=== PATIENT | male | born 1980 | race Caucasian/White ===

== ENCOUNTER 2023-08-26 07:50 | Outpatient (OUT) | payer OTHER, SELFPAY ==
[2023-08-26 08:47] LABS: Basophils Percent Auto 0.4 % (0.2-2.0); Eosinophils Absolute Auto 0.4 10^3/uL (0.0-0.7); Eosinophils Percent Auto 4.7 % (0.9-7.0); Hematocrit 43.9 % (42.0-54.0); Hemoglobin 14.9 g/dL (14.0-18.0); Immature Granulocytes Abs Auto 0.01 10^3/uL (0.00-0.03); Immature Granulocytes Pct Auto 0.1 % (0.0-0.5); Lymphocytes Absolute Auto 3.1 10^3/uL (1.2-3.8); Mean Corpuscular HGB Conc 33.9 g/dL (29.9-35.2); Mean Corpuscular Hemoglobin 32.5 pg (25.9-34.0); Mean Corpuscular Volume 95.6 fL (80.0-94.0); Mean Platelet Volume 9.7 fL (9.5-13.5); Monocytes Absolute Auto 0.5 10^3/uL (0.3-0.8); Monocytes Percent Auto 6.8 % (1.7-12.0); Neutrophils Absolute Auto 3.7 10^3/uL (1.4-6.5); Platelet Count 237 10^3/uL (150-450); Red Blood Count 4.59 10^6/uL (4.70-6.10); Red Cell Distribution Width 12.2 % (11.0-15.0); White Blood Count 7.7 10^3/uL (4.0-11.0)
[2023-08-26 09:11] LABS: Alanine Aminotransferase 29 U/L (16-63); Albumin Globulin Ratio 1.1; Albumin Level 3.7 g/dL (3.4-5.0); Alkaline Phosphatase 65 U/L (46-116); Aspartate Amino Transferase 14 U/L (15-37); BUN Creatinine Ratio 13.2; Bilirubin Total 0.5 mg/dL (0.2-1.0); Calcium 8.5 mg/dL (8.5-10.1); Carbon Dioxide 32.1 mmol/L (21.0-32.0); Chloride 106 mmol/L (98-107); Cholesterol 196 mg/dL (<=200); Estimated GFR (African America >60 (>=60); Estimated GFR (Non-African Ame >60 (>=60); Globulin 3.3 g/dL; Glucose 94 mg/dL (74-106); HDL Cholesterol 42 mg/dL (40-60); Potassium 4.1 mmol/L (3.5-5.1); Sodium 145 mmol/L (136-145); Triglycerides 179 mg/dL (<=150); VLDL CHOLESTEROL 35.8 mg/dL
[2023-08-26 09:12] LABS: Chol HDL Ratio 4.7
== END 2023-08-26 07:51 | disposition home or self-care (01) ==
LOC: LAB 07:54
PROVIDERS: PCP Internal Medicine; Visit Provider Internal Medicine
DX: Z00.00 Encounter for general adult medical examination without abnormal findings (principal)
CPT/HCPCS: 36415; 80053; 80061; 85025

== ENCOUNTER 2024-09-24 10:59 | Outpatient (OUT) | payer OTHER, SELFPAY ==
--- OUTSIDE RECORDS SUMMARY | 2024-09-24 11:16 | XMS_ITS | CCD ---
Author Organization [facility] CliniSyde Care Team Providers Care Contract Administration Coordinator Name Role Phone MISC, DOCTOR Admitting Unavailable MISC, DR GARCIA Consulting Unavailable MISC, DR GARCIA Attending Unavailable BALL, DR BRYAN Primary Care Unavailable BALL, DR BRYAN Primary Care Unavailable PATRICE COLBERT Admitting Unavailable PATRICE COLBERT Consulting Unavailable PATRICE COLBERT Attending Unavailable GAIL AMAYA Admitting Unavailable GAIL AMAYA Attending Unavailable CHRISS ROUSE Primary Care Unavailable ORAL STERLING Referring Unavailable CHRISS ROUSE Primary Care Unavailable ORAL STERLING Referring Unavailable CHRISS ROUSE Primary Care Unavailable Chriss Rouse DO Consulting Unavail able DeVaul EXTRAS CASTING DIRECTOR-CENTER RECEPTIONIST, Elma Walker Attending Unav ailable Ball DOChriss Primary Care Unavail able DeVaul EXTRAS CASTING DIRECTOR-CENTER RECEPTIONIST, Elma Walker Attending Unav ailable Ball , Chriss Puckett Primary Care Unavail able Chriss Rouse Unavailable Chriss Rouse DO Primary Care Provider Allergies Allergy Classification Reported Allergen(s) Allergy Type Date of Onset Reaction(s) Facility (2 sources) Aspirin; Translations: [aspirin] Drug Allergy 988 [facility] Repository (1 source) Novocain Drug allergy (disorder) [facility]ository (3 sources) NOVACAINE Propensity to adverse reactions Unknown [facility] Other (3 sources) ASA-APAP Buffered *ANALGESICS - NonNarcotic* Propensity to adverse reactions Comment:asprin contraindicated [place] Other (3 sources) aspirin contraindicated Propensity to adverse reactions Comment:adverse rxn/side effects Kuailexue Other (2 sources) Aluminum aspirin Drug Allergy Anaphylaxis [place] (2 sources) Procaine Drug Allergy 022 [facility] Work Phone: Medications Current Medications Medication Drug Class(es) Dates Sig (Normalized) Sig (Original) bacillus subtilis [id number] unt / inulin 1000 mg chewable tablet (2 sources) Probiotic - as directed Orally Active famotidine 40 mg oral tablet (3 sources) Histamine-2 Receptor Antagonist Start: 09-28-2021 take 1 tablet by mouth every twenty-four hours Pepcid 40 MG 1 tablet at bedtime as needed Orally Once a day for 30 days Sep, Active Lactobacillus acidophilus (2 sources) take 1 tablet by mouth once daily Lactobacillus (PROBIOTIC ACIDOPHILUS PO) Take 1 tablet by mouth daily 0 Active levoFLOXacin 500 mg oral tablet (1 source) Quinolone Antimicrobial Start: 12-13-2022 End: 12-23-2022 take 1 tablet by mouth once daily levoFLOXacin (LEVAQUIN) 500 MG tablet Take 1 tablet by mouth daily for 10 days 10 tablet 0 12/13/2022 12/23/2022 Active Multiple Vitamins-Minerals (THERAPEUTIC MULTIVITAMIN-MINERA LS) tablet (2 sources) take 1 tablet by mouth once daily Multiple Vitamins-Minerals (THERAPEUTIC MULTIVITAMIN-LAUNCHING PAD MECHANIC ALS) tablet Take 1 tablet by mouth daily 0 Active Multivitamin preparation (3 sources) take 1 tablet by mouth once daily Multivitamin - 1 tablet Orally Once a day Active pantoprazole 40 mg delayed release oral tablet (2 sources) Proton Pump Inhibitor Start: 06-20-2022 take 1 tablet by mouth once daily pantoprazole (PROTONIX) 40 MG tablet Take 40 mg by mouth daily 0 06/20/2022 Active Probiotic - (1 source) Probiotic - as directed Orally Active Completed/Discontinued Medications Medication Drug Class(es) Dates Sig (Normalized) Sig (Original) Budesonide / formoterol (3 sources) Corticosteroid, beta2-Adrenergic Agonist Start: 08-05-2019 take 2 puff(s) by inhalation every twelve hours as needed Symbicort 80-4.5MCG/ACT Symbicort 80-4.5MCG/ACT, 2 (two) Puff Puff every 12 hours # 1, 08/05/2019, Ref. x2. Active Inhalation every 12 hours for 30 Jul, Not-Taking/PRN Start: 08-05-2019 take 2 puff(s) by in halation every twelve hours Symbicort 80-4.5MCG/ACT Symbicort 80-4.5MCG/ACT, 2 (two) Puff Puff every 12 hours # 1, 08/05/2019, Ref. x2. Active Inhalation every 12 hours for 30 Jul, Not-Taking sertraline 100 mg oral tablet (3 sources) Serotonin Reuptake Inhibitor Start: 07-05-2021 take 1 tablet by mouth once as needed Sertraline HCl 100MG Sertraline HCl 100MG, 1 (one) Tablet q HS # 0, 07/05/2021, No Refill. Active Oral q HS for 0 Jun, Not-Taking/PRN Sucralfate (3 sources) Aluminum Complex Start: 09-28-2021 Carafate 1GM Carafate 1GM, 1 (one) Tablet AC and HS # 120, 09/28/2021, Ref. x2. Active Oral AC and HS for 30 Sep, Not-Taking/PRN Start: 09-28-2021 take 1 tablet by ana luisa th at bedtime Carafate 1GM Carafate 1GM, 1 (one) Tablet AC and HS # 120, 09/28/2021, Ref. x2. 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; Translations: [Gastro-esophageal reflux disease with esophagitis] Onset: 01-11-2022 Chronic Inflammatory conditions of male genital organs (2 sources) Orchitis; Translations: [Orchitis] Onset: 12-13-2022 Episodic Other gastrointestinal disorders (3 sources) Irritable bowel syndrome with diarrhea; Translations: [Irritable bowel syndrome with diarrhea] Chronic Substance-related disorders (5 sources) Tobacco user; Translations: [Nicotine dependence, cigarettes, uncomplicated] Chronic Syncope (3 sources) Syncope and collapse; Translations: [Syncope and collapse] Episodic Viral infection (1 source) Other viral warts Episodic Past or Other Problems Problem Classification Problem Date Documented Date Episodic/Chronic Contraceptive and procreative management (1 source) Encounter for sterilization; Translations: [Encounter for sterilization] Onset: 08-30-2022 Episodic Esophageal disorders (1 source) Esophageal disorders Immunizations and screening for infectious disease (4 sources) Encounter for immunization; Translations: [ENCOUNTER FOR IMMUNIZATION] Onset: 01-29-2021 Episodic Other nervous system disorders (1 source) Other acute postprocedural pain; Translations: [Other acute postprocedural pain] Onset: 08-30-2022 Episodic Results Test Name Value Interpretation Reference Range Facil ity C.trachomatis N.gonorrhoeae DNAon 12-13-2022 C. trachomatis DNA JUDITH+probe Nom (Unsp spec) Negative Negative [facility] Collection Method-Specimen Urine [facility] NEISSERIA GONORRHOEAE BY AMP Negative Negative [facility] Chlamydia/Gonorrhea Nucleic Acid Probeon 12-13-2022 CTENDO Negative Normal Negative [facility] Comment on above: Performed By: #### C HLGC #### [place] [id number] Ph. [phone] GC/CHL Collection Method Urine Normal [facility] Comment on above: Performed By: #### C HLGC #### [address] [address] Ph. [phone] GNP Negative Normal Negative [facility] Comment on above: Performed By: #### C HLGC #### [address] [address] Ph. [phone] Culture, Urineon 12-13-2022 Culture, Urine USOURCE: Clean Catch Midstream Preliminary Result: No Growth 24 Hours CULTURE: No Growth at 48 Hours [facility] Comment on above: Order Comment: Speci fy (ex-cath, midstream, cysto, etc)?->midstream Performed By: #### C UR #### [address] [address] Ph. [phone] Post Vasectomy Checkon 10-25 SPERM NO SPERMATOZOA SEEN ON CONCENTRATED SPECIMEN. Normal [facility] Comment on above: Performed By: #### P VAS #### [place] [id number] [place] [id number] Ph. [phone] Post Vasectomy Sperm Counton 10-25-2022 [place] Post Vasectomy NO SPERMATOZOA SEEN ON CONCENTRATED SPECIMEN. [facility] VASILIY [place]FARO [id number] Assoc. Page 1 of 1 [address] [place] [address] PROC: 08/30/2022 [facility] RECV: 08/31/2022 [address] [facility] RPTD: 09/02/2022 [place] [address] LOC: KATHRYN ACCT: [id number] SEX: M : 1980 AGE: 42 Y PATHOLOGY REPORT ATTN: NON-STAFF PHYSICIAN REQ: GAIL AMAYA Copies To: CHRISS ROUSE Clinical Information: STERILIZATION FINAL DIAGNOSIS: A, B. Left and right vas deferens, vasectomy: Complete cross-sections of unremarkable vas deferens. Specimen: A) VAS DEFERENS, LEFT B) VAS DEFERENS, RIGHT Gross Examination: The specimen consists of two parts, each received in formalin and labeled with the patient's name, Vasiliy Alfaro. A - The container is labeled left vas deferens. The specimen consists of a scant fragment of tissue measuring 0.2 cm in maximum dimension. 1 ns. B - The container is labeled right vas. The specimen consists of a scant fragment of tissue measuring 0.4 cm in maximum dimension. 1 ns. SMW:v_alppl_p Microscopic Examination: A, B. Microscopic examination performed. [id number] x 2 PARTH AJ M.D., F.C.A.P [facility]/ [facility] Printed on: 09/02/2022 [address] [place], [place] [address] Original print date: 09/02/2022 Normal [facility] Surgical Pathology Requeston 08-30-2022 MIRANDA SEE BELOW [facility] Comment on above: Order Comment: Nimesh mcgovern [Z30.2] Pre-op diagnosis: left vas deference Result Comment: [place] [facility] VASILIY ALFARO [id number]\X0D0A\Assoc. Page 1 of 1\X0D0A\[address]\X0D0A\[place] [address]\X0D0A\ PROC: 08/30/2022\X0D0A\[facility] RECV: 08/31/2022\X0D0A\[address] RPTD: 09/02/2022\X0D0A\[place] [address]\X0D0A\ LOC: WYA\X0D0A\ ACCT: [id number] SEX: M\X0D0A\ : 1980 AGE: 42 Y\X0D0A\X0D0A\ PATHOLOGY REPORT\X0D0A\ ATTN: NON-STAFF PHYSICIAN\X0D0A\ REQ: GAIL AMAYA\X0D0A\X0D0A\X0D0A\Copies To: CHRISS ROUSE\X0D0A\X0D0A\X0D0A\Clinical Information: STERILIZATION\X0D0A\X0D0A\FINAL DIAGNOSIS:\X0D0A\A, B. Left and right vas deferens, vasectomy:\X0D0A\ Complete cross-sections of unremarkable vas deferens.\X0D0A\X0D0A\Specimen:\X0D0A\A) VAS DEFERENS, LEFT\X0D0A\B) VAS DEFERENS, RIGHT\X0D0A\X0D0A\X0D0A\Gross Examination:\X0D0A\The specimen consists of two parts, each received in formalin and\X0D0A\labeled with the patient's name, Vasiliy Alfaro.\X0D0A\X0D0A\A - The container is labeled left vas deferens. The specimen consists\X0D0A\of a scant fragment of tissue measuring 0.2 cm in maximum dimension. 1\X0D0A\ns.\X0D0A\X0D0A\B - The container is labeled right vas. The specimen consists of a\X0D0A\scant fragment of tissue measuring 0.4 cm in maximum dimension. 1 ns.\X0D0A\SMW:v_alppl_p\X0D0A\X0D0A\Microscopic Examination:\X0D0A\A, B. Microscopic examination performed.\X0D0A\X0D0A\[address] x 2\X0D0A\X0D0A\X0D0A\ \X0D0A\ PARTH AJ M.D., Prosper.P\X0D0A\X0D0A\X0D0A\[place]/ [facility] Printed on: 09/02/2022\X0D0A\[address]\X0D0A\[place], [place] [address]\X0D0A\Original print date: 09/02/2022 Performed By: #### 1 [id number] #### [facility] See Report CBC AUTO DIFFon 01-11-2022 BASO # 0.0 103/ul Normal 0.0-0.1 [facility] Comment on above: Performed By: #### C BC #### [facility] [address] [place] [address] [address] Carlos A Teran Basophils/100 WBC (Bld) 0.6 % Normal 0.2-2.0 [facility] Comment on above: Performed By: #### C BC #### [facility] [address] [place] [address] [address] Carlos A Teran EO # 0.3 103/ul Normal 0.0-0.7 [facility] Comment on above: Performed By: #### C BC #### [facility] [address] [place] [address] [address] Carlos A Teran Eosinophils/100 WBC (Bld) 5.3 % Normal 0.9-7.0 [facility] Comment on above: Performed By: #### C BC #### [facility] [address] [place] [address] [address] Carlos A Teran Erythrocyte distribution width (RBC) [Ratio] 12.1 % Normal 11.0-15.0 [facility] Comment on above: Performed By: #### C BC #### [facility] [address] [place] [address] [address] Carlos A Teran Hematocrit (Bld) [Volume fraction] 44.5 % Normal 42.0-54.0 [facility] Comment on above: Performed By: #### C BC #### [facility] [address] [place] [address] [address] Carlos A Teran Hemoglobin (Bld) [Mass/Vol] 15.5 g/dL Normal 14.0-18.0 [facility] Comment on above: Performed By: #### C BC #### [facility] [address] [place] [address] [address] Carlos A Teran IG # 0.01 10e3/ul Normal 0.00-0.03 [facility] Comment on above: Performed By: #### C BC #### [facility] [address] [place] [address] [address] Carlos A Teran IG % 0.2 % Normal 0.0-0.5 [facility] Comment on above: Performed By: #### C BC #### [facility] [address] [place] [address] [address] Carlos A Teran LYMPH # 2.2 103/ul Normal 1.2-3.8 [facility] Comment on above: Performed By: #### C BC #### [facility] [address] [place] [address] [address] Carlos A Teran Lymphocytes/100 WBC (Bld) 43.7 % Normal 20.5-60.0 [facility] Comment on above: Performed By: #### C BC #### [facility] [address] [place] [address] [address] Carlos A Teran MANUAL DIFF REQ NO Normal [facility] Comment on above: Performed By: #### C BC #### [facility] [address] [place] [address] Dr. Carlos A Teran MCH (RBC) [Entitic mass] 32.6 pg Normal 25.9-34.0 [facility] Comment on above: Performed By: #### C BC #### [facility] [address] [place] [address] [address] Carlos A Teran MCHC (RBC) [Mass/Vol] 34.8 g/dL Normal 29.9-35.2 [facility] Comment on above: Performed By: #### C BC #### [facility] [address] [place] [address] [address] Carlos A Teran MCV (RBC) [Entitic vol] 93.7 fL Normal 80.0-94.0 [facility] Comment on above: Performed By: #### C BC #### [facility] [address] [place] [address] [address] Carlos A Teran MONO # 0.3 103/ul Normal 0.3-0.8 [facility] Comment on above: Performed By: #### C BC #### [facility] [address] [place] [address] Dr. Carlos A Teran Monocytes/100 WBC (Bld) 5.8 % Normal 1.7-12.0 [facility] Comment on above: Performed By: #### C BC #### [facility] [address] [place] [address] Dr. Carlos A Teran NEUT # 2.3 103/ul Normal 1.4-6.5 [facility] Comment on above: Performed By: #### C BC #### [facility] [address] [place] [address] Dr. Carlos A Teran Neutrophils/100 WBC (Bld) 44.4 % Normal 43.0-75.0 [facility] Comment on above: Performed By: #### C BC #### [facility] [address] [place] [address] Dr. Carlos A Teran Platelet mean volume (Bld) [Entitic vol] 9.4 fL Critically low 9.5-13.5 [facility] Comment on above: Performed By: #### C BC #### [facility] [address] [place] [address] Dr. Carlos A Teran PLT 216 103/ul Normal 150-450 [facility] Comment on above: Performed By: #### C BC #### [facility] [address] [place] [address] Dr. Carlos A Teran RBC 4.75 106/ul Normal 4.70-6.10 [facility] Comment on above: Performed By: #### C BC #### [facility] [address] [place] [address] Dr. Carlos A Teran WBC 5.1 103/ul Normal 4.0-11.0 [facility] Comment on above: Performed By: #### C BC #### [facility] [address] [place] [address] Dr. Carlos A Teran PROF 14(COMP METB)on 022 Albumin [Mass/Vol] 3.9 g/dL Normal 3.4-5.0 [facility] Comment on above: Performed By: #### C MP #### [facility] [address] [place] [address] Dr. Carlos A Teran Albumin/Globulin [Mass ratio] 1.2 {ratio} Normal [facility] Comment on above: Performed By: #### C MP #### [facility] [address] [place] [address] Dr. Carlos A Teran ALP [Catalytic activity/Vol] 67 U/L Normal 46-116 [facility] Comment on above: Performed By: #### C MP #### [facility] [address] [place] [address] Dr. Carlos A Teran ALT [Catalytic activity/Vol] 31 U/L Normal 16-63 [facility] Comment on above: Performed By: #### C MP #### [facility] [address] [place] [address] Dr. Carlos A Teran Anion gap [Moles/Vol] 8.7 mmol/L Normal [facility] Comment on above: Performed By: #### C MP #### [facility] [address] [place] [address] Dr. Carlos A Teran AST [Catalytic activity/Vol] 12 U/L Critically low 15-37 [facility] Comment on above: Performed By: #### C MP #### [facility] [address] [place] [address] Dr. Carlos A Teran Bilirubin [Mass/Vol] 0.5 mg/dL Normal 0.2-1.0 [facility] Comment on above: Performed By: #### C MP #### [facility] [address] [place] [address] Dr. Carlos A Teran Calcium [Mass/Vol] 8.4 mg/dL Critically low 8.5-10.1 [facility] Comment on above: Performed By: #### C MP #### [facility] [address] [place] [address] [address] Carlos A Teran Chloride [Moles/Vol] 102 mmol/L Normal 98-107 [facility] Comment on above: Performed By: #### C MP #### [facility] [address] [place] [address] Dr. Carlos A Teran CO2 [Moles/Vol] 29.2 mmol/L Normal 21.0-32.0 [facility] Comment on above: Performed By: #### C MP #### [facility] [address] [place] [address] Dr. Carlos A Teran Creatinine [Mass/Vol] 1.04 mg/dL Normal 0.70-1.30 [facility] Comment on above: Performed By: #### C MP #### [facility] [address] [place] [address] Dr. Carlos A Teran EGFR-AF MALAGASY >60 Normal >=60 [facility] Comment on above: Performed By: #### C MP #### [facility] [address] [place] [address] Dr. Carlos A Teran EGFR-NON AF MALAGASY >60 Normal >=60 [facility] Comment on above: Performed By: #### C MP #### [facility] [address] [place] [address] Dr. Carlos A Teran Globulin (S) [Mass/Vol] 3.2 g/dL Normal [facility] Comment on above: Performed By: #### C MP #### [facility] [address] [place] [address] Dr. Carlos A Teran Glucose [Mass/Vol] 102 mg/dL Normal 74-106 [facility] Comment on above: Performed By: #### C MP #### [facility] [address] [place] [address] [address] Carlos A Teran Potassium [Moles/Vol] 3.9 mmol/L Normal 3.5-5.1 [facility] Comment on above: Performed By: #### C MP #### [facility] [address] [place] [address] [address] Carlos A Teran Protein [Mass/Vol] 7.1 g/dL Normal 6.1-8.2 [facility] Comment on above: Performed By: #### C MP #### [facility] [address] [place] [address] [address] Carlos A Teran Sodium [Moles/Vol] 136 mmol/L Normal 136-145 [facility] Comment on above: Performed By: #### C MP #### [facility] [address] [place] [address] [address] Carlos A Teran Urea nitrogen [Mass/Vol] 8.0 mg/dL Normal 7.0-18.0 [facility] Comment on above: Performed By: #### C MP #### [facility] [address] [place] [address] [address] Carlos A Teran Urea nitrogen/Creatinine [Mass ratio] 7.7 mg/mg Normal [facility] Comment on above: Performed By: #### C MP #### [facility] [address] [place] [address] [address] Carlos A Teran VIT B12 AND FOLATEon 022 Cobalamin (Vitamin B12) [Mass/Vol] 337.0 pg/mL Normal 239.0-931.0 [facility] Comment on above: Performed By: #### B 12FOL #### [facility] [address] [place] [address] [address] Carlos A Teran FOLATE 10.20 ng/mL Normal 8.60-58.90 [facility] Comment on above: Performed By: #### B 12FOL #### [facility] [address] [place] [address] [address] Carlos A Teran Ambulatory Clinical Summaryo n 02-18-2020 Ambulatory Clinical Summary {[id number]}CD:[id number] Normal [facility] Pathology Noteon 02-14-2020 Pathology Note [id number] #1.00CD:127 Normal [facility] Lab Reportson 02-01-2020 Lab Reports [id number] #1.00CD:127 Normal [facility] BASIC METABOLIC PANELon 09-0 Anion gap [Moles/Vol] 16 mmol/L Normal 10 - 20 [facility] Comment on above: Performed By: #### B MP #### [address] [address] Calcium [Mass/Vol] 9.6 mg/dL Normal 8.6 - 10.3 [facility] Comment on above: Performed By: #### B MP #### [address] [address] Chloride [Moles/Vol] 103 mmol/L Normal 98 - 107 [facility] Comment on above: Performed By: #### B MP #### [address] [address] Creatinine [Mass/Vol] 1.03 mg/dL Normal 0.50 - 1.30 [facility] Comment on above: Performed By: #### B MP #### [address] [address] GFR- AM. >60 Normal >60 [facility] Comment on above: Result Comment: CALC ULATIONS OF ESTIMATED GFR ARE PERFORMED USING THE MDRD STUDY EQUATION FOR THE IDMS-TRACEABLE CREATININE METHODS. CLIN CHEM 2007;53:766-72 Performed By: #### B MP #### [address] [address] GFR-NON AM. >60 Normal >60 [facility] Comment on above: Performed By: #### B MP #### [address] [address] Glucose [Mass/Vol] 99 mg/dL Normal 74 - 99 [facility] Comment on above: Performed By: #### B MP #### [facility] [address] [place] [address] HCO3 (Bld) [Moles/Vol] 24 mmol/L Normal 21 - 32 [facility] Comment on above: Performed By: #### B MP #### [address] [address] Potassium [Moles/Vol] 3.3 mmol/L Low 3.5 - 5.3 [facility] Comment on above: Performed By: #### B MP #### [address] [address] Sodium [Moles/Vol] 140 mmol/L Normal 136 - 145 [facility] Comment on above: Performed By: #### B MP #### [address] [address] Urea nitrogen [Mass/Vol] 11 mg/dL Normal 6 - 23 [facility] Comment on above: Performed By: #### B MP #### [address] [address] CBCon 05-16-2019 Erythrocyte distribution width (RBC) [Ratio] 11.9 % Normal 11.5 - 14.5 [facility] Comment on above: Performed By: #### C BC #### [address] [address] Hematocrit (Bld) [Volume fraction] 43.2 % Normal 41.0 - 52.0 [facility] Comment on above: Performed By: #### C BC #### [address] [address] Hemoglobin (Bld) [Mass/Vol] 15.0 g/dL Normal 13.5 - 17.5 [facility] Comment on above: Performed By: #### C BC #### [address] [address] MCHC (RBC) [Mass/Vol] 34.7 g/dL Normal 32.0 - 36.0 [facility] Comment on above: Performed By: #### C BC #### [facility] [address] [place] [address] MCV (RBC) [Entitic vol] 91 fL Normal 80 - 100 [facility] Comment on above: Performed By: #### C BC #### [facility] [address] [place] [address] Platelets (Bld) [#/Vol] 269 10*3/uL Normal 150 - 450 [facility] Comment on above: Performed By: #### C BC #### [address] [address] RBC (Bld) [#/Vol] 4.77 x10E12/L Normal 4.50 - 5.90 [facility] Comment on above: Performed By: #### C BC #### [address] [address] WBC (Bld) [#/Vol] 7.7 10*3/uL Normal 4.4 - 11.3 [facility] Comment on above: Performed By: #### C BC #### [address] [address] TROPONIN Ion 05-16-2019 Troponin I.cardiac [Mass/Vol] ng/mL Normal 0.00 - 0.03 [facility] Comment on above: Result Comment: LESS THAN 0.04 NG/ML: NEGATIVE REPEAT TESTING IN THREE TO SIX HOURS IF CLINICALLY INDICATED. 0.04 - 0.5 NG/ML: CONSISTENT WITH POSSIBLE CARDIAC DAMAGE AND POSSIBLE INCREASED CLINICAL RISK. SERIAL MEASUREMENTS MAY HELP ASSESS EXTENT OF MYOCARDIAL DAMAGE. >0.5 NG/ML: CONSISTENT WITH CARDIAC DAMAGE, INCREASED CLINICAL RISK AND MYOCARDIAL INFARCTION. SERIAL MEASUREMENTS MAY HELP ASSESS EXTENT OF MYOCARDIAL DAMAGE. . Note: Troponin I testing is performed using different testing methodology at [facility] than at other [facility]. Direct result comparisons should only be made within the same method. Performed By: #### T ROP2 #### [address] [address] Vital Signs Date Time Vital Sign Value Performing Clinician Facility 09-24-2023 15:30-0500 Body height 170.18 cm Chriss Rouse Other [facility] Other 09-24-2023 15:30-0500 Body mass index (BMI) [Ratio] 26.81 kg/m2 Chriss Ball Other [facility] Other 09-24-2023 15:30-0500 Body weight 77.66 kg Chriss Ball Other [facility] Other 09-24-2023 15:30-0500 Diastolic blood pressure 78 mm[Hg] Chriss Ball Other [facility] Other 09-24-2023 15:30-0500 Respiratory rate 12 /min Chriss Ball Other [facility] Other 09-24-2023 15:30-0500 Systolic blood pressure 121 mm[Hg] Chriss Ball Other [facility] Other 08-21-2023 08:30-0500 Body height 170.18 cm Chriss Ball Other [facility] Other 08-21-2023 08:30-0500 Body mass index (BMI) [Ratio] 26.9 kg/m2 Chriss Ball Other [facility] Other 08-21-2023 08:30-0500 Body weight 77.93 kg Chriss Ball Other [facility] Other 08-21-2023 08:30-0500 Diastolic blood pressure 74 mm[Hg] Chriss Ball Other [facility] Other 08-21-2023 08:30-0500 Respiratory rate 12 /min Chriss Ball Other [facility] Other 08-21-2023 08:30-0500 Systolic blood pressure 110 mm[Hg] Chriss Ball Other [facility] Other Encounters Encounter Date Encounter Type Care Provider Facility Start: 09-24-2023 End: 09-24-2023 ambulatory Chriss Rouse Other [facility] Other Start: 09-24-2023 Office outpatient vi sit 15 minutes Chriss Rouse [facility] Start: 08-26-2023 End: 08-26-2023 ambulatory Chriss Rouse Other [facility] Other Start: 08-26-2023 Telephone encounter Chriss Rouse [facility] Start: 08-21-2023 End: 08-21-2023 ambulatory Chriss Rouse Other [facility] Other Start: 08-21-2023 Encounter for genera l adult medical examination without abnormal findings Chriss Rouse [facility] Start: 08-21-2023 Periodic preventive med est patient 40-64yrs Chriss Rouse [facility] Start: 06-26-2023 End: 06-27-2023 ambulatory Elma Buchanan EXTRAS CASTING DIRECTOR-CENTER RECEPTIONIST [facility] Start: 06-24-2023 ambulatory Chriss Rouse DO Facility:[facility] Start: 12-13-2022 ambulatory [facility] Start: 12-13-2022 End: 12-13-2022 Subsequent hospital visit by physician Chriss Rouse DO Work Phone: [facility] Comment on above: Orchitis of left ricky ticle Start: 10-25-2022 ambulatory [facility] Start: 10-25-2022 End: 10-25-2022 Subsequent hospital visit by physician Chriss Rouse DO Work Phone: [facility] Comment on above: S/P vasectomy Start: 08-30-2022 End: 08-30-[address] [facility] Start: 01-11-2022 End: 01-12-[address] DOCTOR MICHAUD Facility:[facility] Start: 01-29-2021 End: 01-30-[address] CHRISS ROUSE Facility:[facility] Procedures Date Procedure Procedure Detail Performing Clinician Start: 12-13-2022 Iadna multiple organ isms amplified probe tq Oral Sterling PA-C Work Phone: Start: 10-25-2022 POST VASECTOMY SPERM COUNT Oral Sterling PA-C Work Phone: H/O: vasectomy S/P vasectomy Chriss Yeison l DO Work Phone: Plan of Treatment Date Care Activity Detail Author Start: 03-14-2029 DTaP/Tdap/Td vaccine (2 - Td or Tdap) DTaP/Tdap/Td vaccine (2 - Td or Tdap) [facility] Start: 02-03-2023 End: 02-03-2023 Patient encounter procedure 02/03/2023 Office Visit Urology Oral Sterling PA-C [address] [place] [address] [place] [address] [facility] Start: 04-15-2022 Influenza vaccination Flu vaccine (# 1) [facility] Start: 03-26-2021 COVID-19 Vaccine (3 - Booster for Pfizer series) COVID-19 Vaccine (3 - Booster for Pfizer series) [facility] Start[facility] 2019 Lipid panel Lipids [facility] Start: 1997 Hepatitis C screening Hepatitis C sc reen [facility] Start: 1994 HIV screening HIV screen [facility] Start: 1991 Depression Screen Depression Screen [facility] Start: 1985 Pneumococcal 0-64 ye ars Vaccine (1 - PCV) Pneumococcal 0-64 years Vaccine (1 - PCV) [facility] End: 12-13-2022 C.trachomatis N.gonorrhoeae DNA, Urine C.trachomatis N.gonorrhoeae DNA, Urine Microbiology Routine Orchitis of left testicle 1 Occurrences starting 12/13/2022 until 12/13/2022 [facility] Work Phone: Comment on above: 1 Occurrences starti ng 12/13/2022 until 12/13/2022 End: 12-13-2022 Culture, Urine [facility] Work Phone: Comment on above: 1 Occurrences starti ng 12/13/2022 until 12/13/2022 Payers Date Payer Category Payer Unknown 2019 Unknown [id number] 1979 Unknown [id number] [id number] 1979 Unknown [id number] [id number] [id number] 1979 Unknown [id number] [id number] 1979 Unknown [id number] 2.16.8 [id number] 1979 Unknown [id number] 2.16.8 [id number] 1979 Unknown [id number] [id number] 1979 Unknown [id number] [id number]. [id number] 1959 Unknown [id number] Social History Date Type Detail Facility Sex Assigned At [facility] Other Start: 09-15-1994 [facility] Phone: Start: 09-15-1994 History of tobacco use Cigarette Smo ker [facility] [employer] Phone: Start: 06-07-2022 End: 09-13-2022 Cigarettes smoked current (pack per day) - Reported 1 [facility] [employer] Phone: Start: 06-07-2022 Tobacco use and exposure Smokeless tobacco non-user [facility] [employer] Phone: Start: 09-13-2022 Alcohol intake Current drinke r of alcohol (finding) [facility] [employer] Phone: Start: 08-26-2022 Alcohol Comment 1-2 beers 2x a week [facility] [employer] Phone: Start: 1980 Sex Assigned At Not on file W KATELYNN Work Phone: Evaluation note 09-24-2023 Note Date & Type Note Facility 09-24-2023 Evaluation note Encounter Date Diagnosis Assessment Notes Sep, Nicotine dependence, cigarettes, uncomplicated (ICD-10 - F17.210) This patient has been encouraged to quit tobacco use immediately. They are aware of the hazards associated with tobacco use, including but not limited to respiratory infections, vascular disease and cancers. Sep, Common wart (ICD-10 - B07.8) Patient instructed on treatment.[ Liquid nitrogen w/ 2 freeze/thaw cycles He is to expect a blister and keep covered during daytime to avoid friction/irrit ation. [facility] Other Evaluation note 08-21-2023 Note Date & Type Note Facility 08-21-2023 Evaluation note Encounter Date Diagnosis Assessment Notes Aug, Wellness examination (ICD-10 - Z00.00) Healthy diet and exercise. Reviewed age-appropriat e preventive testing recommended. Aug, Gastro-esophagea l reflux disease with esophagitis, without bleeding (ICD-10 - K21.00) Diet instructions: Smaller portions, avoid eating and laying flat, avoid eating or drinking prior to bedtime. Weight loss. Hx of vasovagal syncope due to esophageal spasms. PRN treatment Aug, Nicotine dependence, cigarettes, uncomplicated (ICD-10 - F17.210) Instructed on smoking sensation This patient has been encouraged to quit tobacco use immediately. They are aware of the hazards associated with tobacco use, including but not limited to respiratory infections, vascular disease and cancers. [facility] Other Clinical Note 06-26-2023 Note Date & Type Note Facility 06-26-2023 Note This is a Telehealth Appointment *This visit was conducted via Telehealth with real time interactive synchronized audio and video communication. The patient provided written consent for treatment. The patient understands their rights, the HIPAA risks and that they will be charged accordingly for the services rendered. The patient was seen via telemedicine while they were at: _ This telemedicine visit was conducted due to: _ Chief Complaint Follow-up Vanegas's esophagus GERD hiatal hernia History of Present Illness Patient presents as a telehealth secondary to residing in [place], as per his preference, he was identified with providing name and date of . He is following up for GERD, hiatal hernia and history of Vanegas's esophagus. Denies fever, chills, nausea or vomiting. Does have a daily stool, type 4 on BSFS. States he has cut out soda and pizza and has lost 20-25#. Denies any break thru heartburn with use of PPI daily. EGD 11/23/2021 Impression and Plan EGD: Diagnosis: Duodenal erosion ([id number]-SO K26.9, Discharge, Medical), Barretts esophagus (DVN71-CM K22.70, Discharge, Medical), Gastric erythema (INW08-HS K31.9, Discharge, Medical). Orders: Pathology reports to be followed. Continue PPI. Avoid NSAIDs. Lifestyle modifications including weight loss, HOB elevation, allowing at least 1-3 hours after eating before lying down, avoiding alcohol and avoiding smoking. Return to GI clinic per schedule.. pathology 11/23/2021/Diagnosis (Verified) Part A: Gastric biopsies: Mild features suggestive of reactive gastropathy and focal atrophic gastritis. Negative for dysplasia and malignancy. Part B: Gastroesophageal junction biopsies: Benign squamoglandular mucosa with mild to focally moderate chronic inflammation. Negative for intestinal metaplasia and dysplasia. Part C: Gastric polyp: Polypoid fragments of normal gastric mucosa. EGD 09/28/2021 Impression and Plan Indication for EGD is GERD, dyspepsia. Examined mucosa of the esophagus showed LA grade C esophagitis along with multiple tongues of salmon-colored mucosa in the distal esophagus. GE junction was at 35 cm from the incisors. Diaphragmatic pinch at 40 cm from the incisors. 5 cm (length) hiatal hernia seen on forward view. Biopsy was obtained from distal esophagus but due to significant oozing dedicated Vanegas's esophagitis biopsies were deferred in this endoscopy exam. Examined mucosa of the stomach was normal in the region of fundus, body, antrum, pylorus. Hiatal hernia seen on retroflexion. Random biopsies were obtained to rule out H. pylori, intestinal metaplasia/dysplasia/malignancy. Examined mucosa of the duodenum was normal in the region of bulb, D1 and D2 except: Erythema in the bulb. Random duodenal biopsies were obtained to rule out celiac disease. Patient tolerated the procedure well without any complications. Recommendation: Await biopsy results. Treat for H. pylori if positive. Recommend high-dose PPI twice daily for 8 weeks followed by repeat EGD to reassess healing of esophagitis and obtain dedicated biopsies to rule out Vanegas's mucosa. Patient reported to me prior to endoscopy that he is intolerant to omeprazole and lansoprazole. Can try Protonix (pantoprazole) and assess response. Avoid NSAIDs. Stop smoking. Regular exercise and weight loss. Follow-up in GI clinic as a scheduled pathology 09/28/2021/Diagnosis (Verified) Part A: Duodenum, biopsy: No pathologic change. Negative for celiac disease. Part B: Stomach, biopsy: No pathologic change. Negative for Helicobacter. Part C: Distal esophagus, biopsy: Junctional mucosa showing mild chronic inflammation. Negative for intestinal metaplasia or dysplasia. Colonoscopy: 02/09/2020 The terminal ileum was intubated and noted to be normal without inflammatory changes or ulcerations, biopsied with cold biopsy forceps was obtained. There were rare diverticula throughout the colon without inflammatory changes or scarring. A 3 mm sessile polyp was noted in the rectum removed with cold biopsy forceps. No significant hemorrhoidal disease. Pathology: 02/09/2020 Terminal ileum biopsy: Small bowel mucosa with no significant pathological findings Rectal polyp biopsy: Hyperplastic polyp Primary care provider Chriss rouse Surgeon in [place] Dr. John Review of Systems Constitutional: No fevers, chills, sweats Eye: No recent visual problems ENMT: No ear pain, nasal congestion, sore throat Respiratory: No shortness of breath, cough Cardiovascular: No Chest pain, palpitations, syncope Gastrointestinal: No nausea, vomiting, diarrhea Genitourinary: No hematuria, no urgency/frequency Lymph: Negative for bruising tendency, swollen lymph glands Endocrine: Negative for excessive thirst, excessive hunger Musculoskeletal: No back pain, neck pain, joint pain, muscle pain, decreased range of motion Integumentary: No rash, pruritus, abrasions Neurologic: Alert & oriented X 4 to person, place, time and (more content not included)... [facility] Evaluation note Note Date & Type Note Facility Evaluation note No Information [facility] Other Evaluation note Note Date & Type Note Facility Evaluation note Diagnosis Orchitis of left testicle Orchitis and epididymitis, unspecified documented in this encounter DEANN[facility] Work Phone: Evaluation note Note Date & Type Note Facility Evaluation note Diagnosis S/P vasectomy Vasectomy status documented in this encounter SIMIN Patel Phone: History general Narrative - Reported Note Date & Type Note Facility History general Narrative - Reported Type Medical History Intermittent asthma without complication Medical History JUAN (generalized anxiety disorde r) Medical History Nicotine dependence, cigarettes, uncomplicated Medical History Neurocardiogenic syncope Medical History Irritable bowel syndrome with di arrhea Medical History Gastro-esophageal re flux disease with esophagitis, without bleeding Surgical History Colonoscopy 2019 Surgical History Colonoscopy 2021 Surgical History EGD 2019 Surgical History EGD x 2 2021 Hospitalization History see surgical history [facility] Other Summary Purpose Family History No Family History Records FoundNo Family History Records FoundNo Family History Records FoundNo Family History Records FoundNo Family History Records FoundNo Family History Records Found Advance Directives No Advanced Directives Records FoundNo Advanced Directives Records FoundNo Advanced Directives Records FoundNo Advanced Directives Records FoundNo Advanced Directives Records FoundNo Advanced Directives Records Found Additional Source Comments (unrecognized sect ion and content) No Status Records FoundNo Status Records FoundNo Status Records FoundNo Status Records FoundNo Status Records FoundNo Status Records Found INFORMATION SOURCE (unrecogn ized section and content) DATE CREATED AUTHOR 10/26/2019 [facility] DATE CREATED AUTHOR AUTHOR'S ORGANIZ ATION 04/03/2020 [facility] DATE CREATED AUTHOR AUTHOR'S ORGANIZ ATION 01/17/2022 [facility] DATE CREATED AUTHOR AUTHOR'S ORGANIZ ATION 09/06/2022 [facility] DATE CREATED AUTHOR AUTHOR'S ORGANIZ ATION 12/18/[address] [facility] DATE CREATED AUTHOR AUTHOR'S ORGANIZ ATION 07/21/2023 [facility] REASON FOR VISIT (unrecogniz ed section and content) wellnessLab resultswart tyra carisa Care Teams (unrecognized sec tion and content) Contract Administration Coordinator Relationship Specialty Start Date End Date Chriss Rouse DO [address] [place] [address] PCP - General Internal Medicine 06/07/22 Contract Administration Coordinator Relationship Specialty Start Date End Date Chriss Rouse DO [address] [place] [address] PCP - General Internal Medicine 06/07/22 FOR RECORDS PERTAINING TO PATIENTS WHO ARE OR HAVE BEEN ENROLLED IN A CHEMICAL DEPENDENCY/SUBSTANCEABUSE PROGRAM, SOME INFORMATION MAY BE OMITTED. This clinical summary was aggregated from multiple sources. Caution should be exercised in using it in the provision of clinical care. This summary normalizes information from multiple sources, and as a consequence, information in this document may materially change the coding, format and clinical context of patient data. In addition, data may be omitted in some cases. CLINICAL DECISIONS SHOULD BE BASED ON THE PRIMARY CLINICAL RECORDS. [employer] provides no warranty or guarantee of the accuracy or completeness of information in this document.
[2024-09-24 12:03] LABS: Basophils Percent Auto 0.3 % (0.2-2.0); Eosinophils Absolute Auto 0.2 10^3/uL (0.0-0.7); Eosinophils Percent Auto 2.6 % (0.9-7.0); Hematocrit 42.4 % (42.0-54.0); Hemoglobin 14.9 g/dL (14.0-18.0); Immature Granulocytes Abs Auto 0.01 10^3/uL (0.00-0.03); Immature Granulocytes Pct Auto 0.1 % (0.0-0.5); Lymphocytes Percent Auto 38.5 % (20.5-60.0); Mean Corpuscular HGB Conc 35.1 g/dL (29.9-35.2); Mean Platelet Volume 8.9 fL (9.5-13.5); Monocytes Absolute Auto 0.4 10^3/uL (0.3-0.8); Monocytes Percent Auto 5.5 % (1.7-12.0); Neutrophils Absolute Auto 4.1 10^3/uL (1.4-6.5); Platelet Count 286 10^3/uL (150-450); Red Blood Count 4.51 10^6/uL (4.70-6.10); Red Cell Distribution Width 11.8 % (11.0-15.0); White Blood Count 7.8 10^3/uL (4.0-11.0)
[2024-09-24 13:30] LABS: Albumin Globulin Ratio 1.1; Albumin Level 3.8 g/dL (3.4-5.0); Alkaline Phosphatase 84 U/L (46-116); Anion Gap 14.8; BUN Creatinine Ratio 13.7; Calcium 8.8 mg/dL (8.5-10.1); Carbon Dioxide 26.4 mmol/L (21.0-32.0); Chloride 105 mmol/L (98-107); Chol HDL Ratio 7.5; Cholesterol 188 mg/dL (<=200); Estimated GFR (African America >60 (>=60 mL/min/1.73m^2); Estimated GFR (Non-African Ame >60 (>=60 mL/min/1.73m^2); Globulin 3.5 g/dL; Glucose 100 mg/dL (74-106); HDL Cholesterol 25 mg/dL (40-60); Potassium 4.2 mmol/L (3.5-5.1); Sodium 142 mmol/L (136-145); Total Protein 7.3 g/dL (6.4-8.2); Triglycerides 618 mg/dL (<=150); VLDL CHOLESTEROL 123.6 mg/dL
[2024-09-24 15:52] LABS: Alanine Aminotransferase 17 U/L (16-63); Aspartate Amino Transferase 9 U/L (15-37)
[2024-09-24 16:06] LABS: LDL Cholesterol Direct 101 mg/dL
[2024-09-25 23:24] LABS: Bilirubin Total <0.1 mg/dL (0.2-1.0)
== END 2024-09-24 11:00 | disposition home or self-care (01) ==
LOC: LAB 11:00
PROVIDERS: PCP Internal Medicine; Visit Provider Internal Medicine
DX: Z00.00 Encounter for general adult medical examination without abnormal findings (principal)
CPT/HCPCS: 36415; 80053; 80061; 83721; 85025; G0103